=== PATIENT | female | born 1975 | race Caucasian/White ===

== ENCOUNTER 2023-06-13 14:05 | Outpatient (CLI) | payer BC, SELFPAY ==
--- NOTE | 2023-06-13 14:13 | CA_ITS ---
APPROVED REPORT EXAM: Comprehensive 2D, Doppler, and color-flow Echocardiogram Business Continuity Consultant: RANJAN Barbosa, RVS Ht: 5 ft 6 in Wt: 177lbs BSA: 1.90 BP: 134/91 mmHg Indications: Pre-op assessment, SOA, CP, Fatigue, ABN EKG 2D Dimensions Left Atrium 3.22 cm F: 2.7 - 3.8 M-Mode Dimensions RVDd 2.19 cm (0.9-2.6) LA Diam 3.80 cm (1.9-4.0) LVDd 5.01 cm (3.5-5.7) LVDs 3.09 cm (3.5-5.7) IVSd 1.21 cm (0.6-1.1) PWd 0.98 cm (0.6-1.1) EF (Teich) 68.40% EPSs 0.34 cm FS 38.30% EDV (Teich) 118.80 mL TAPSE 2.26 (<1.7) ESV (Teich) 37.60 mL LV Diastology E Decel Time 173 (160-240 msec) E/A Ratio 1.62 MED A' 10.50 cm/s LAT A' 9.30 cm/s Aortic Valve CHRISTINA Index 0.94 cm2/m2 AoV Peak Richard. 129.0 (50-130 cm/s) AO Peak GR. 6.60 mmHg AO Mean GR. 3.40 (<5 mmHg) AO VTI 29.1 (18-25 cm) CHRISTINA (VTI) 1.83 (2.5-4.5 cm2) Mitral Valve MV A Velocity 66.0 (40-130 cm/s) E/A Ratio 1.62 Tricuspid Valve TR P. Velocity 211.00 cm/s Left Ventricle The left ventricle is normal size. The left ventricular systolic function is normal. The left ventricular ejection fraction is within the normal range. There is normal left ventricular wall thickness. There is normal LV segmental wall motion. The left ventricular diastolic function is normal. LVEF is 55%. Right Ventricle The right ventricle is normal size. The right ventricular systolic function is normal. Atria The left atrium size is normal. The right atrium size is normal. There is no Doppler evidence of interatrial shunt. Aortic Valve The aortic valve opens well. There is no aortic valvular stenosis. No aortic regurgitation is present. Mitral Valve The mitral valve is normal in structure. No evidence of mitral valve stenosis. Trace mitral regurgitation. Tricuspid Valve The tricuspid valve leaflets are thin and pliable. Mild tricuspid regurgitation. RVSP is 15-20 mmHg. Pulmonic Valve The pulmonary valve is normal in structure. Mild pulmonic regurgitation. Great Vessels The aortic root is normal in size. The ascending aorta is normal in size. IVC is normal in size and collapses >50% with inspiration. Pericardium There is no pericardial effusion. Other Information Study Quality: Adequate Conclusion Normal biventricular systolic function. Mild TR, mild PI. Electronically signed by : Kori Landaverde MD 06/13/2023 23:46:07
[2023-06-13 15:07] LABS: Basophils % 0.3 % (0.1-2.0); Eosinophils # 0.1 K/mm3 (0.0-0.4); Eosinophils % 0.8 % (0.1-12.0); Hematocrit 37.3 % (37.0-47.0); Hemoglobin 12.1 g/dL (12.2-16.2); Lymphocytes # 1.8 K/mm3 (0.7-4.5); Lymphocytes % 25.2 % (10-50); Mean Corpuscular HGB Conc 32.4 g/dL (31.8-35.4); Mean Corpuscular Hemoglobin 30.8 pg (27.0-31.2); Mean Corpuscular Volume 95.2 fl (81-99); Mean Platelet Volume 7.8 fl (7.4-10.4); Monocytes # 0.4 K/mm3 (0.1-1.0); Monocytes % 5.2 % (1.7-9.3); Neutrophils # 4.9 K/mm3 (1.8-7.8); Neutrophils % 68.5 % (37.0-80.0); Platelet Count 377 K/mm3 (142-424); Red Blood Count 3.92 M/mm3 (4.20-5.40); Red Cell Distribution Width 13.2 % (11.5-17.5); White Blood Count 7.1 K/mm3 (4.8-10.8)
[2023-06-13 15:41] LABS: Alanine Aminotransferase 27 U/L (12-78); Albumin Level 4.3 g/dl (3.5-5.0); Alkaline Phosphatase 68 U/L (38-126); Aspartate Amino Transferase 27 U/L (14-36); Bilirubin,Direct 0.2 mg/dl (0.0-0.4); Bilirubin,Indirect 0.2 mg/dL (0.0-0.9); Bilirubin,Total 0.4 mg/dl (0.2-1.3); Bilirubin,Unconjugated 0.3 mg/dL (0.0-1.1); Blood Urea Nitrogen 15 mg/dl (7-17); Calcium 9.8 mg/dl (8.4-10.2); Carbon Dioxide 27 mmol/L (22.0-30.0); Chloride 107 mmol/L (98-107); Chol/HDL Ratio 2.8 (1-3.5); Cholesterol 135 mg/dl (140-200); Estimated Glomerular Filt Rate 106 ml/min (>60); GFR (African American) 128 ML/MIN (>60); Glucose 96 mg/dl (74-100); HDL Cholesterol 48 mg/dl (40-60); Magnesium 2.3 mg/dl (1.6-2.3); Sodium 139 mmol/L (136-145); Total Protein,Serum 6.9 g/dl (6.3-8.2); Triglycerides 92 mg/dl (30-150); VLDL Cholesterol 18 mg/dL (0-40)
[2023-06-13 15:51] LABS: NT Pro Brain Natriuretic Pep. 124 pg/mL (0-125)
[2023-06-13 15:59] LABS: Free T4 (Free Thyroxine) 0.94 ng/dl (0.78-2.19)
[2023-06-13 16:12] LABS: Thyroid Stimulating Hormone 0.91 uIU/mL (0.465-4.68)
[2023-06-13 22:03] LABS: Hemoglobin A1C 5.4 % (4.0-6.0)
== END 2023-06-13 23:59 ==
LOC: RT 14:13
PROVIDERS: Visit Provider Internal Medicine
DX: R53.83 Other fatigue; R94.31 Abnormal electrocardiogram [ECG] [EKG]; Z01.810 Encounter for preprocedural cardiovascular examination; Z13.1 Encounter for screening for diabetes mellitus; R06.02 Shortness of breath
CPT/HCPCS: 36415; 80048; 80061; 80076; 83036; 83735; 83880; 84439; 84443; 85025; 93306

== ENCOUNTER 2023-06-15 11:54 | Outpatient (CLI) | payer BC, SELFPAY ==
[2023-06-14 13:55] VITALS: BMI 27.9
--- NOTE | 2023-06-15 11:56 | CT_ITS ---
APPROVED REPORT Director Of Land Acquisition: CLINICAL INDICATION Chest Pain TECHNIQUE Image Acquisition: A 128 slice MDCT scanner ([employer] View) was used for data acquisition. A noncontrast coronary calcium scan was performed. A CT attenuation threshold of 130 Hounsfield units (HU) was used for the detection of calcium in contiguous voxels of 1 sq mm in area to be counted as individual lesions. Bolus tracking in the ascending aorta with a threshold of 180 HU was performed. Immediately afterwards, ECG synchronized cardiac CT was then performed from the cardiac base to apex using retrospective gating with ECG tube current modulation. A total of 85 mL of Isovue 370 mg/mL contrast medium was administered at 5 mL/sec followed by a saline flush using a biphasic injection protocol. A tube voltage of 120 KVp was used. The patient received the following medications prior to the cardiac CT. 25 mg of oral metoprolol 15 mg of oral ivabradine 0.8 mg of sublingual nitroglycerin The average heart rate at the time of acquisition was 55 bpm and regular. Image Reconstruction Transaxial images were reconstructed at 0.67 mm slide thickness. Data was reviewed interactively on an advanced workstation capable of 2 and 3-dimensional displays in all conventional reconstruction formats, including multiplanar reformations, maximum intensity projections, curved multiplanar reformations, and volume rendered reconstructions. When applicable, selected routine images describing the relevant coronary anatomy and pathology were saved and sent to PACS. Complications None Technical Quality Overall image quality was good. Coronary artery opacification was adequate. Total DLP (Dose-Length Product) is 1739.6 mGy-cm. The reported value represents the total of one or more individual components during the CT acquisition of this date and at this time, and as such, the same value may appear in more than one CT report depending on the interpreting/reporting physicians. COMPARISON None FINDINGS CT Coronary Calcium Scoring LMA (Left Main Artery) = 0 LAD (Left Anterior Descending) = 3 LCX (Left Coronary Circumflex) = 0 RCA (Right Coronary Artery) = 0 Total Calcium Score = 3 using the AJ-130 method. The observed calcium score of 3 is at 86th percentile for subjects of the same age, sex, and race/ethnicity. The interpretation of the calcium heart score is based on the following continuum*: 0 = no calcified plaque detected (risk of coronary artery disease is very low ??? less than 5%) 1-10 = calcium detected in extremely minimal levels (risk of coronary diseases is still low ??? less than 10%) 11-100 = mild levels of plaque detected with certainty (mild or minimal narrowing of heart arteries is likely) 101-400 = definite,at least moderate levels of plaque detected (relatively high risk of a heart attack within 3-5 years) >401-999 = extensive levels of plaque detected (high risk of heart attack, high levels of vascular disease are present, high likelihood of at least one significant coronary narrowing) *The calcium heart score quantifies the burden of coronary calcification/plaque in the coronary arteries. The calcium heart score is not able to evaluate the presence or burden of non-calcified (i.e. soft) plaque. There is no identifiable calcification in the aortic valve, mitral annulus or mitral valve, pericardium, or myocardium. Coronary CT Angiography The coronary arterial system is right dominant. Quantitative Stenosis Grading: Left Main (LM): The left main originates normally from the left sinus of Valsalva. The LM bifurcates into the left anterior descending artery and left circumflex artery. The LM is patent with no evidence of atherosclerosis. Left Anterior Descending (LAD) and Diagonal Branches: The LAD gives off 3 diagonal branches. There is 1 focus of calcification in the mid LAD segment, but with no evidence of luminal stenosis. There is no evidence of LAD-myocardial bridge. Left Circumflex (LCX) and Obtuse Marginals (OM): The LCX gives off 1 Obtuse Marginal (OM) branch. The LCX and its branches are patent with no evidence of atherosclerosis. Right Coronary Artery (RCA): The RCA originates normally from the right sinus of Valsalva. The RCA gives off a posterior descending artery (PDA) and posterolateral (PL) branches. The RCA and its branches are patent with no evidence of atherosclerosis. Non-Coronary Cardiac Findings: Analysis of the left ventricular (LV) structure and function was performed after 3-D reconstruction of the LV from axial images, with user-corrected automatic contouring for assessment of LV volumes and user-defined reconstruction from oblique planes for measurement of 3-D cardiac structure and function. -The left ventricle systolic function is normal (LVEF 59%) -There is incomplete opacification of the distal left atrial appendage. This is most likely due to no IV contrast flow into the distal appendage, but true perfusion defect cannot be entirely ruled out. Two right pulmonary veins and two left pulmonary veins drain normally into the left atrium. -No pericardial thickening or calcification. -Central and branch pulmonary arteries in the [id number] are unremarkable. -Thoracic aorta within the visualized thoracic aortic-branches in the [id number] is unremarkable. Extracardiac Structures No significant extra-cardiac findings. Note, however, that this study is focused on the cardiac findings. IMPRESSION -Minimal coronary calcification with an Agatston score = 3 using the AJ-130 method. -The observed calcium score of 3 is at 86th percentile for subjects of the same age, sex, and race/ethnicity. -No evidence of significant flow-limiting atherosclerosis of the coronary arteries. -CAD-RADS 1. Management recommendations per ACC/AHA guidelines*, as clinically appropriate. *Recommendations: CAD RADS 0: Reassurance. Consider non-atherosclerotic causes of chest pain. CAD RADS 1: Consider non-atherosclerotic causes of chest pain. Consider preventive therapy and risk factor modification. CAD RADS 2: Consider non-atherosclerotic causes of chest pain. Consider preventive therapy and risk factor modification, particularly for patients with nonobstructive plaque in multiple segments. CAD RADS 3: Consider further functional testing. Consider symptom-guided anti-ischemic and preventive pharmacotherapy as well as risk factor modification per published guideline statements. CAD RADS 4A: Consider further functional testing or invasive coronary angiography with revascularization per published guideline statements. Consider symptom-guided anti-ischemic and preventive pharmacotherapy as well as risk factor modification per published guideline statements. CAD RADS 4B: Invasive coronary angiography recommended with revascularization per published guideline statements. Consider symptom-guided anti-ischemic and preventive pharmacotherapy as well as risk factor modification per published guideline statements. CAD RADS 5: Consider invasive angiography and/or viability assessment with revascularization per published guideline statements. Consider symptom-guided anti-ischemic and preventive pharmacotherapy as well as risk factor modification per published guideline statements. CRITICAL RESULT None COMMUNICATION Per this written report The coronary and cardiac findings of this CCTA were reviewed, reported, and signed by Carrington Landaverde MD (Is Manager) Conclusion Electronically signed by : Kori Landaverde MD 06/15/2023 14:30:16
[2023-06-15 12:14] VITALS: BP 130/76; PULSE 65; RESP 18; TEMP 36.4; O2SAT 100
[2023-06-15 12:18] LABS: Urine Pregnancy, HCG Qual. Negative (Negative)
[2023-06-15] MEDS: METOPROLOL TARTRATE 25MG TABLET 25 MG (12:26)
[2023-06-15] MEDS: IVABRADINE HCL 7.5MG TABLET 15 MG PO (12:26)
[2023-06-15 13:11] VITALS: BP 153/87; PULSE 58; RESP 17; O2SAT 97
[2023-06-15] MEDS: NITROGLYCERIN 0.4MG SL TABLET SL (13:11)
[2023-06-15 13:13] VITALS: BP 127/71; PULSE 59; RESP 17; O2SAT 97
[2023-06-15 13:20] VITALS: BP 116/68; PULSE 58; RESP 18; O2SAT 97
[2023-06-15] MEDS: 0.9 % SODIUM CHLORIDE 50 ML VIAL IV (13:24)
[2023-06-15] MEDS: IOPAMIDOL-370 (76%);100ML BOTTLE 85 ML IV (13:24)
[2023-06-15 13:26] VITALS: BP 100/60; PULSE 67; RESP 16; O2SAT 97
[2023-06-15 13:34] VITALS: BP 107/67; PULSE 68; RESP 17; O2SAT 98
== END 2023-06-15 13:40 | disposition home or self-care (01) ==
PROVIDERS: PCP Internal Medicine; Visit Provider Internal Medicine
DX: R06.00 Dyspnea, unspecified (principal); R53.83 Other fatigue; R94.31 Abnormal electrocardiogram [ECG] [EKG]; Z01.810 Encounter for preprocedural cardiovascular examination
CPT/HCPCS: 75571; 75574; 81025; Q9967